=== PATIENT | male | born 1985 | race Caucasian/White ===

== ENCOUNTER 2023-07-22 14:36 | Outpatient (REF) | payer MEDICAID, SELFPAY ==
--- NOTE | ~2023-07-22 | XR_ITS ---
EXAMINATION: XR ANKLE, RIGHT XR FOOT, RIGHT CLINICAL INFORMATION: Right foot and ankle pain and swelling. Dorsal foot pain and anterior lower leg pain. COMPARISON: None available. TECHNIQUE: AP, lateral, and mortise views of the right ankle were obtained. AP, oblique, and lateral views of the right foot. FINDINGS: No acute fracture or dislocation. The ankle mortise is maintained. No joint space narrowing or marginal osteophytes. No osseous erosion. Tiny plantar and dorsal calcaneal spurs. XR/XR foot RT min 3V IMPRESSION: 1. No acute osseous abnormality. 2. Tiny plantar and dorsal calcaneal spurs.
--- NOTE | ~2023-07-22 | XR_ITS ---
EXAMINATION: XR ANKLE, RIGHT XR FOOT, RIGHT CLINICAL INFORMATION: Right foot and ankle pain and swelling. Dorsal foot pain and anterior lower leg pain. COMPARISON: None available. TECHNIQUE: AP, lateral, and mortise views of the right ankle were obtained. AP, oblique, and lateral views of the right foot. FINDINGS: No acute fracture or dislocation. The ankle mortise is maintained. No joint space narrowing or marginal osteophytes. No osseous erosion. Tiny plantar and dorsal calcaneal spurs. XR/XR ankle RT min 3V IMPRESSION: 1. No acute osseous abnormality. 2. Tiny plantar and dorsal calcaneal spurs.
== END 2023-07-22 14:37 | disposition home or self-care (01) ==
LOC: HO.HHCX 14:36
PROVIDERS: Visit Provider Internal Medicine
DX: M25.471 Effusion, right ankle (principal)
CPT/HCPCS: 36415; 73610; 73630; 84550; 85025; 85652; 86431

== ENCOUNTER 2023-07-22 14:52 | Outpatient (REF) | payer MEDICAID, SELFPAY ==
[2023-07-22 16:09] LABS: MANUAL DIFF FLAG NO
[2023-07-22 16:17] LABS: Basophils Percent Auto 0.7 % (0-2); Eosinophils Absolute Auto 0.1 X10*3/uL (0.0-0.4); Eosinophils Percent Auto 1.5 % (0-4); Hematocrit 47.5 % (42.0-52.0); Hemoglobin 15.7 g/dl (14.0-18.0); Imm Gran Abs Auto 0.01 X10*3/uL (0.00-0.03); Imm Gran Pct Auto 0.2 % (0.0-0.4); Lymphocytes Absolute Auto 1.3 X10*3/uL (1.2-4.9); Mean Corpuscular HGB Conc 33.1 g/dl (31.0-36.0); Mean Corpuscular Hemoglobin 27.3 pg (27.0-33.0); Mean Corpuscular Volume 82.6 fL (80.0-98.0); Monocytes Absolute Auto 0.5 X10*3/uL (0.1-1.2); Monocytes Percent Auto 8.7 % (2-11); Neutrophils Absolute Auto 4.1 x10*3/uL (2.0-8.3); Neutrophils Percent Auto 67.9 % (45-73); Platelet Count 229 X10*3/uL (160-400); Red Blood Count 5.75 X10*6/uL (4.60-5.80); Red Cell Distribution Width 13.1 % (11.0-16.0); White Blood Count 6.1 X10*3/uL (4.8-10.8)
[2023-07-22 16:24] LABS: Uric Acid 6.1 mg/dL (3.4-7.0)
[2023-07-22 16:32] LABS: Rheumatoid Factor < 13.0 IU/mL (<15.0)
[2023-07-22 17:00] LABS: Erythrocyte Sedimentation Rate 1 MM/HR (0-15)
== END 2023-07-22 14:53 | disposition home or self-care (01) ==
LOC: HO.HHCL 14:52
PROVIDERS: Visit Provider Internal Medicine
DX: M25.471 Effusion, right ankle (principal)
CPT/HCPCS: 36415; 84550; 85025; 85652; 86431

== ENCOUNTER 2024-08-19 18:12 | Emergency (ER) | payer MEDICAID, SELFPAY ==
--- NOTE | ~2024-08-19 | XR_ITS ---
CLINICAL HISTORY: CP 2 view chest x-ray Comparison: None Findings: The lungs are clear. Normal size heart. No acute fracture. IMPRESSION: 1. No acute findings. This document has been electronically signed by: Jose Daniel Hebert MD on 08/19/2024 20:02:35
--- NOTE | 2024-08-19 18:15 | ECG_ITS ---
Test Reason : CP Blood Pressure : */* mmHG Vent. Rate : 97 BPM Atrial Rate : 97 BPM P-R Int : 120 ms QRS Dur : 70 ms QT Int : 334 ms P-R-T Axes : 72 -20 17 degrees QTcB Int : 424 ms Normal sinus rhythm Normal ECG No previous ECGs available Referred By: Generic ED Physician Electronically Signed By: USAMA ZHOU MD
[2024-08-19 18:49] VITALS: BP 122/77; PULSE 94; RESP 18; TEMP 36.3; O2SAT 94; BMI 29.3
--- NOTE | 2024-08-19 18:55 | ED.CHESTPAIN ---
HPI - Chest Pain General Chief Complaint: Chest Pain Stated Complaint: chest pain/vomiting Time Seen by Provider: 08/20/24 00:17 Source: patient Limitations: no limitations History of Present Illness ED Provider: Vandana Kaplan PA-C HPI narrative: 39-year-old male presents with multiple complaints. Patient states he developed sharp upper anterior chest discomfort around 330 p.m., followed by generalized abdominal pain with the associated nausea vomiting and diarrhea. The chest discomfort was brief, he is currently asymptomatic. Patient has had 3-4 episodes of vomiting thus far. Denies sick contacts with same symptoms. Denies recent cough or cold symptoms, shortness of breath or fever. Denies recent travel, use of antibiotics or hospitalization. Related Data Previous Rx's ?Medication ?Instructions ?Recorded dicyclomine 20 mg tablet 20 mg PO BID PRN abdominal pain #7 08/20/24 tabs ondansetron HCl 4 mg tablet 4 mg PO Q8H PRN nausea and 08/20/24 vomiting #10 tabs Allergies Allergy/AdvReac Type Severity Reaction Status Date / Time latex [LATEX] Allergy Unknown ITCHY Verified 08/19/24 18:50 Review of Systems Review of Systems: Yes all other systems are reviewed and are negative Constitutional: Constitutional: Denies fatigue and Denies fever(s) Cardiovascular: Cardiovascular: Reports chest pain and Denies dyspnea Respiratory: Respiratory: Denies chest congestion, Denies cough and Denies dyspnea Gastrointestinal: Gastrointestinal: Reports abdominal pain, Reports diarrhea, Reports nausea and Reports vomiting Endocrine: Endocrine: Denies fatigue PMFSH Past Medical History Attestation statement: The following information was validated with the patient. Social History Social History (System 07/22/23 @ 11:03 by Leena Martino) Advance Directives: No Advance Directives Information Provided: Yes Do you have a plan to hurt others: No Plan Physical Exam Vital Signs: Vital Signs: Last Vital Signs Temp 98.0 F 08/20/24 04:21 Pulse 56 08/20/24 04:21 Resp 14 08/20/24 04:21 BP 111/69 08/20/24 04:21 Pulse Ox 98 08/20/24 04:21 O2 Del Method Room Air 08/20/24 04:21 BMI result Body Mass Index 29.3 Const: Other: Alert well-appearing Orientation/consciousness: patient oriented x3 Resp: Effort & Inspection: normal respiratory effort Cardio: Other: Normal peripheral perfusion GI: Other: Abdomen is soft, nondistended nontender no guarding Skin: Other: Warm dry no rash Neuro: General: patient oriented x3, gait normal, no focal motor deficits and CN's II-XI intact bilaterally Psych: Other: Cooperative Course Course Course Narrative: This is an RME: Additional HPI, ROS, PE not included below will be deferred to primary provider. RME assessment and note performed by: Irina Bass PA-C This is a 39-year-old male who presents emergency department for evaluation of chest pain. This started at approximately 3:30 a.m. this afternoon, also endorsing nausea, vomiting, diarrhea. Plan: Labs, viral swabs, EKG, chest x-ray Medications Administered Discontinued Medications Generic Name Dose Route Start Last Admin Trade Name Freq PRN Reason Stop Dose Admin Dicyclomine HCl 20 mg 08/20/24 01:02 08/20/24 02:52 Dicyclomine Hcl 10 Mg Capsule PO 08/20/24 01:03 20 mg ONCE ONE Administration Sodium Chloride 1,000 mls @ 999 mls/hr 08/20/24 01:15 08/20/24 02:52 Ns IV 08/20/24 02:15 999 mls/hr .Q1H1M SOLO Administration Ketorolac Tromethamine 15 mg 08/20/24 01:02 08/20/24 02:52 Ketorolac Tromethamine 15 Mg/Ml Vial IVPUSH 08/20/24 01:03 15 mg ONCE ONE Administration Ondansetron HCl 4 mg 08/20/24 01:02 08/20/24 02:52 Ondansetron Hcl 4 Mg/2 Ml Vial IVPUSH 08/20/24 01:03 4 mg ONCE ONE Administration Medical Decision Making Medical Decision Making [facility] Narrative: 39-year-old male presents with multiple complaints. Patient states he developed sharp upper anterior chest discomfort around 330 p.m., followed by generalized abdominal pain with the associated nausea vomiting and diarrhea. The chest discomfort was brief, he is currently asymptomatic. Patient has had 3-4 episodes of vomiting thus far. Denies sick contacts with same symptoms. Denies recent cough or cold symptoms, shortness of breath or fever. Denies recent travel, use of antibiotics or hospitalization. No known chronic issues History: Per patient I have considered the following differential diagnoses: ACS, viral gastroenteritis, diverticulitis, traveler's diarrhea, C diff Plan: Patient's symptoms are likely secondary to viral gastroenteritis as such illness has been prevalent within the community. Has a nonfocal abdominal exam, I considered diverticulitis, however again exam was benign he does not warrant imaging. We will provide symptomatic care. Screening labs were obtained from triage. In regard to his chest discomfort it is atypical it was transient he has no risk factors for coronary artery disease, troponin EKG and chest x-ray were obtained. The patient has no risk factors for C diff or traveler's diarrhea. Labs: Slight leukocytosis, not anemic, no electrolyte abnormality, troponin 3.3 EKG: Normal sinus rhythm, rate of 97 no ischemic changes no ectopy QTC 424 Chest x-ray:omparison: None Findings: The lungs are clear. Normal size heart. No acute fracture. IMPRESSION: 1. No acute findings. This document has been electronically signed by: Jose Daniel Hebert MD on Lab Data 08/19/24 19:25 08/19/24 19:24 Labs: Lab Results 08/19/24 08/19/24 08/20/24 Range/Units 19:24 19:25 00:44 WBC 12.4 H (4.8-10.8) X10*3/uL RBC 6.17 H (4.60-5.80) X10*6/uL Hgb 16.8 (14.0-18.0) g/dl Hct 49.6 (42.0-52.0) % MCV 80.4 (80.0-98.0) fL MCH 27.2 (27.0-33.0) pg MCHC 33.9 (31.0-36.0) g/dl RDW 13.2 (11.0-16.0) % Plt Count 235 (160-400) X10*3/uL MPV 10.0 (9.4-12.4) fL Immature Gran % (Auto) 0.2 (0.0-0.4) % Neut % (Auto) 82.8 H (45-73) % Lymph % (Auto) 7.7 L (20-40) % Burke % (Auto) 8.1 (2-11) % Eos % (Auto) 1.0 (0-4) % Baso % (Auto) 0.2 (0-2) % Lymph # (Auto) 1.0 L (1.2-4.9) X10*3/uL Burke # (Auto) 1.0 (0.1-1.2) X10*3/uL Eos # (Auto) 0.1 (0.0-0.4) X10*3/uL Baso # (Auto) 0.0 (0.0-0.2) X10*3/uL Abs Immat Gran (auto) 0.03 (0.00-0.03) X10*3/uL Absolute Neuts (auto) 10.3 H (2.0-8.3) x10*3/uL Absolute Nucleated RBC 0.000 (0.0-0.012) X10*3/uL Nucleated RBC % (auto) 0.0 (0.0-0.2) /100WBC Sodium 141 (135-145) mmol/L Potassium 4.5 (3.3-5.1) mmol/L Chloride 109 H (96-108) mmol/L Carbon Dioxide 28 (22-29) mmol/L Anion Gap 9 L (12-20) BUN 11 (9-16) mg/dL Creatinine 0.81 (0.5-1.4) mg/dL Estim Creat Clear Calc 128.8 Estimated GFR > 60 Random Glucose 98 (60-115) mg/dL Calcium 9.1 (8.4-10.2) mg/dL Magnesium 2.0 (1.6-2.6) mg/dL Total Bilirubin 1.4 H (0.0-1.0) mg/dL Direct Bilirubin 0.4 (0.0-0.5) mg/dL AST 19 (5-37) U/L ALT 36 (0-40) U/L Alkaline Phosphatase 66 (39-117) U/L Troponin I High Sens 3.3 (<3.5-35.0) ng/L Total Protein 7.9 (6.5-8.0) g/dL Albumin 4.4 (3.5-5.0) g/dL Lipase 15 (8-78) U/L Urine Color Yellow Urine Appearance Clear Urine pH 5.5 (5.0-9.0) Ur Specific [place] 1.020 (1.005-1.025) Urine Protein 30 (1+) H (Neg-Trace) mg/dL Urine Glucose (UA) Negative (Negative) mg/dL Urine Ketones Trace (Negative) mg/dL Urine Blood Negative (Negative) Urine Nitrite Negative (Negative) Ur Leukocyte Esterase Negative (Negative) Urine RBC 0-2 (0-2) /HPF Urine WBC 0-5 (0-5) /HPF Ur Squamous Epith Cells 0-2 (0-2) /HPF Urine Bacteria None Seen (None Seen) Hyaline Casts 0-2 (0-2) /LPF Influenza Type A (PCR) NEGATIVE (Negative) Influenza Type B (PCR) NEGATIVE (Negative) RSV RNA Qual (PCR) NEGATIVE (Negative) SARS-CoV-2 RNA (RT-PCR) NEGATIVE (Negative) Discharge Plan Discharge Clinical Impression: Viral gastroenteritis, Chest wall pain Patient Disposition: Home, Self-Care Instructions: Gastroenteritis (ED), Chest Wall Pain (ED) Additional Instructions: All of your screening labs including a cardiac enzymes were normal. The viral panel was negative. Your chest x-ray is clear and there were no concerning changes on your EKG. You have a virus causing your symptoms. In regard to your chest pain, it is most consistent with chest wall pain, not cardiac pain. Uses Zofran as needed for nausea. Use the dicyclomine as needed for abdominal cramping and diarrhea. You can use [id number] ibuprofen 600 mg taken every 6 hours with food, for your chest wall pain. Follow up with your primary care provider as needed. Prescriptions: New ondansetron HCl 4 mg tablet 4 mg PO Q8H PRN (Reason: nausea and vomiting) Qty: 10 0RF dicyclomine 20 mg tablet 20 mg PO BID PRN (Reason: abdominal pain) Qty: 7 0RF Interventions: ED Discharge Assessment Last Done: 08/20/24 04:21 Discharge Date/Time: 08/20/24 04:23 Print Language: Italian
[2024-08-19 19:28] LABS: MANUAL DIFF FLAG NO
[2024-08-19 19:33] LABS: Basophils Percent Auto 0.2 % (0-2); Eosinophils Absolute Auto 0.1 X10*3/uL (0.0-0.4); Hematocrit 49.6 % (42.0-52.0); Hemoglobin 16.8 g/dl (14.0-18.0); Imm Gran Abs Auto 0.03 X10*3/uL (0.00-0.03); Imm Gran Pct Auto 0.2 % (0.0-0.4); Lymphocytes Percent Auto 7.7 % (20-40); Mean Corpuscular HGB Conc 33.9 g/dl (31.0-36.0); Mean Corpuscular Hemoglobin 27.2 pg (27.0-33.0); Mean Corpuscular Volume 80.4 fL (80.0-98.0); Monocytes Percent Auto 8.1 % (2-11); Neutrophils Absolute Auto 10.3 x10*3/uL (2.0-8.3); Neutrophils Percent Auto 82.8 % (45-73); Platelet Count 235 X10*3/uL (160-400); Red Blood Count 6.17 X10*6/uL (4.60-5.80); Red Cell Distribution Width 13.2 % (11.0-16.0); White Blood Count 12.4 X10*3/uL (4.8-10.8)
[2024-08-19 20:04] LABS: Alanine Aminotransferase 36 U/L (0-40); Albumin Level 4.4 g/dL (3.5-5.0); Alkaline Phosphatase 66 U/L (39-117); Anion Gap 9 (12-20); Aspartate Amino Transferase 19 U/L (5-37); Bilirubin Direct 0.4 mg/dL (0.0-0.5); Bilirubin Total 1.4 mg/dL (0.0-1.0); Blood Urea Nitrogen 11 mg/dL (9-16); Calcium 9.1 mg/dL (8.4-10.2); Carbon Dioxide 28 mmol/L (22-29); Chloride 109 mmol/L (96-108); Creatinine Clr Calc Pharmacy 128.8; Estimated Glomerular Filt Rate > 60; Glucose Random 98 mg/dL (60-115); Lipase 15 U/L (8-78); Potassium 4.5 mmol/L (3.3-5.1); Sodium 141 mmol/L (135-145); Total Protein 7.9 g/dL (6.5-8.0)
[2024-08-19 20:09] LABS: Influenza A PCR NEGATIVE (Negative); Influenza B PCR NEGATIVE (Negative); Resp Syncy Virus RNA Qual PCR NEGATIVE (Negative); SARS COV2 PCR INHOUSE NEGATIVE (Negative)
[2024-08-19 20:10] LABS: Troponin-I High Sensitivity 3.3 ng/L (<3.5-35.0)
[2024-08-19 22:28] VITALS: BP 118/65; PULSE 69; RESP 18; TEMP 36.6; O2SAT 99
[2024-08-20 00:13] VITALS: BP 127/74; PULSE 66; RESP 16; TEMP 36.6; O2SAT 99
[2024-08-20 00:51] LABS: Appearance Urine Clear; Color Urine Yellow; Glucose Urine UA Negative (Negative); Leukocyte Esterase Urine Negative (Negative); Nitrite Urine Negative (Negative); PH 5.5 (5.0-9.0); UMIC TRIGGER UACC YES; Urine Blood Negative (Negative); Urine Ketones Trace mg/dL (Negative); Urine Protein 30 (1+) mg/dL (Neg-Trace)
[2024-08-20 00:59] LABS: Bacteria Urine None Seen (None Seen); Hyaline Casts Urine 0-2 /LPF (0-2); RBC Urine 0-2 /HPF (0-2); Squamous Epithelial Cell Urine 0-2 /HPF (0-2); WBC Urine 0-5 /HPF (0-5)
[2024-08-20 02:22] VITALS: BP 111/69; PULSE 56; RESP 14; TEMP 36.7; O2SAT 98
[2024-08-20] MEDS: ondansetron HCL 4 MG/2 ML VIAL IVPUSH (02:52)
[2024-08-20] MEDS: Ketorolac Tromethamine 15 MG/ML VIAL IVPUSH (02:52)
[2024-08-20] MEDS: Dicyclomine HCl 10 MG CAPSULE 20 MG PO (02:52)
[2024-08-20] MEDS: 0.9 % Sodium Chloride 1,000 ML 999 ML IV (02:52)
[2024-08-20 04:21] VITALS: BP 111/69; PULSE 56; RESP 14; TEMP 36.7; O2SAT 98
== END 2024-08-20 04:23 | disposition home or self-care (01) ==
PROVIDERS: Physician Assistant Medical; Emergency Provider Emergency Medicine
DX: K52.9 Noninfective gastroenteritis and colitis, unspecified (principal); R07.89 Other chest pain; Z03.818 Encounter for observation for suspected exposure to other biological agents ruled out; R11.2 Nausea with vomiting, unspecified
CPT/HCPCS: 0241U; 71046; 80048; 80076; 81001; 83690; 83735; 84484; 85025; 93005; 96374; 96375; 99284; J1885; J2405

== ENCOUNTER → 2024-08-19 18:15 | Outpatient (BNV) | payer MEDICAID, SELFPAY | PROVIDERS: Emergency Provider Emergency Medicine; Visit Provider Internal Medicine Cardiovascular Disease | DX: R07.9 Chest pain, unspecified (principal) | CPT/HCPCS: 93010 ==

== ENCOUNTER → 2024-08-19 19:17 | Outpatient (BNV) | payer MEDICAID, SELFPAY | PROVIDERS: Visit Provider Radiology Diagnostic Radiology | DX: R07.9 Chest pain, unspecified (principal) | CPT/HCPCS: 71046 ==

== ENCOUNTER 2024-09-21 08:08 | Outpatient (REF) | payer MEDICAID, SELFPAY ==
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
--- OUTSIDE RECORDS SUMMARY | 2024-09-21 08:12 | XMS_ITS | Encounter Summary ---
Author Organization [employer] Address [address] [facility] [address] [place] [address] Care Team Providers Care Balance Assembler Name Role Phone Anel Velasco SOLE ROUNDING MACHINE OPERATOR Primary Care Provider [phone] Encounter Details Date Type Department Care Team (Latest Contact Info) Description 09/17/2024 Travel Social History Tobacco Use Types Packs/Day Years Used Date Smoking Tobacco: Never Smokeless Tobacco: Never Alcohol Use Standard Drinks/Week Comments Yes 0 (1 standard drink = 0.6 oz pur e alcohol) Socially Depression Answer Date Recorded Patient Health Questionnaire-9 Score 0 09/17/2024 Patient Health Questionnaire-9 Score 0 09/17/2024 Last PHQ-9: Questionnaire Data Not on file 0 09/17/2024 Housing Stability Answer Date Recorded What is your housing situation today? I have benjie cassie 06/03/[address] you li ve. Do you have problems with any of the following? None of the above 06/03/2023 Food Insecurity Answer Date Recorded Within the past 12 months, y ou worried that your food would run out before you got money to buy more: Never True 06/03/2023 Within the past 12 months,th e food you bought just didn't last and you didn't have enough money to get more: Never True Transportation Answer Date Recorded In the past 12 months, has l ack of transportation kept you from medical appts, meetings, work or from getting things needed for daily living? No 06/03/2023 Utilities Answer Date Recorded In the past 12 months, has t he electric, gas, oil or water company threatened to shut off services in your home? No 06/03/2023 Depression Answer Date Recorded Patient Health Questionnaire-2 Score 0 09/17/2024 Sex and Gender Information Value Date Recorded Sex Assigned at Male 06/03/2022 10:37 AM EDT Legal Sex Male 10:37 AM EDT Gender Identity Male 06/03/2022 10:37 AM EDT Sexual Orientation Straight 06/03/2022 10 :37 AM EDT documented as of this encounter Plan of Treatment Not on file documented as of this encounter Visit Diagnoses Not on filedocumented in this encounter Additional Health Concerns Assessment Noted Time PHQ-9 Depression Total Score: 0 09/17/19 25 9:33 AM EST documented as of this encounter Care Teams Balance Assembler Relationship Specialty Start Date End Date Anel Velasco FNP [address] [place] [address] PCP - General Family Medicine 10/03/22 documented as of this encounter
--- OUTSIDE RECORDS SUMMARY | 2024-09-21 08:12 | XMS_ITS | Encounter Summary ---
Author Organization [employer] Address [address] [facility] [address] [place] [address] Care Team Providers Care City Dispatch Supervisor Name Role Phone Anel Velasco DIRECTOR PHARMACEUTICAL Primary Care Provider [phone] Reason for Visit * Reason Onset Date Comments Chart Prep 09/16/2024 Encounter Details Date Type Department Care Team (Late st Contact Info) Description 09/16/2024 Telephone [facility] [address] [place] [address] Jing Talley MA Chart Prep Social History Tobacco Use Types Packs/Day Years [...] your housing situation today? I have benjie matthews 06/03/[address] you li [...] AM EDT documented as of this encounter Miscellaneous Notes * Telephone Encounter - Jing Duenas MA - 09/16/2024 9:47 AM EST Chart Prep Labs: done Images: done Vaccines due: yes Referrals: pending appt Screenings: STI screening, Lipid Panel, Hep C Overdue care gaps: Sbirt, SDOH, PHQ-9, PISQ documented in this encounter Plan of Treatment Not on file documented as of this encounter Visit Diagnoses Not on filedocumented in this encounter Care Teams City Dispatch Supervisor Relationship Specialty Start Date End Date Anel Velasco FNP [address] [place] [address] PCP - General Family Medicine 10/03/22 documented as of this encounter
--- OUTSIDE RECORDS SUMMARY | 2024-09-21 08:12 | XMS_ITS | Encounter Summary ---
Author Organization [facility] Address [address] [facility] [address] [place] [address] Care Team Providers Care Surveillance Investigator Name Role Phone Anel Velasco Primary Care Provider [phone] Reason for Visit * Reason Onset Date Comments Appointment Request 10/10/2022 Encounter Details Date Type Department Care Team (Late st Contact Info) Description 10/10/2022 Telephone [facility] [address] [place] [address] Anel Velasco FNP [address] [place], [place] [phone] Appointment Request Social History Tobacco Use Types Packs/Day Years Used Date Smoking Tobacco: Never Smokeless Tobacco: Never Housing Stability Answer Date Recorded What is your housing situation today? I have benjiejuanjo matthews 06/03/[address] you [...] off services in your home? No 06/03/2023 Sex and Gender Information Value Date Recorded Sex Assigned at Male 06/03/2022 10:37 AM EDT Legal Sex Male 10:37 AM EDT Gender Identity Male 06/03/2022 10:37 AM EDT Sexual Orientation Straight 06/03/2022 10 :37 AM EDT COVID-19 Exposure Response Date Recorded In the last 10 days, have yo u been in contact with someone who was confirmed or suspected to have Coronavirus/COVID-19? No / Unsure 10/28/2022 1:08 PM EDT documented as of this encounter Miscellaneous Notes * Telephone Encounter - Halima Marquez - 10/10/2022 12:50 PM EST Tc from pt requesting to schedule a appt with PCP per HIM requesting to sign FMLA forms. Please contact at [phone] [place] documented in this encounter Plan of Treatment Not on file documented as of this encounter Visit Diagnoses Not on filedocumented in this encounter Care Teams Surveillance Investigator Relationship Specialty Start Date End Date Anel Velasco FNP [address] [place] [address] PCP - General Family Medicine 10/03/22 documented as of this encounter
--- OUTSIDE RECORDS SUMMARY | 2024-09-21 08:12 | XMS_ITS | Encounter Summary ---
Author Organization [employer] Address [address] [facility] [address] [place] [address] Care Team Providers Care Neon Electrician Name Role Phone Anel Velasco Primary Care Provider [phone] Reason for Visit * Reason Comments Pre-visit Planning SDOH unable to reach LVM Encounter Details Date Type Department Care Team ([facility] st Contact Info) Description 09/10/2024 Patient Outreach [facility] [address] [place], [place] [phone] Anel Velasco FNP [address] [place] [address] Pre-visit Planning (SDOH unable to reach LVM) Social History Tobacco Use Types Packs/Day Years Used Date Smoking Tobacco: Never Smokeless Tobacco: Never Alcohol Use Standard Drinks/Week Comments Yes 0 (1 standard drink = 0.6 oz pur e alcohol) Socially Housing Stability Answer Date Recorded What is [...] on filedocumented in this encounter Care Teams Neon Electrician Relationship Specialty Start Date End Date Anel Velasco FNP [address] [place] [address] PCP - General Family Medicine 10/03/22 documented as of this encounter
--- OUTSIDE RECORDS SUMMARY | 2024-09-21 08:12 | XMS_ITS | Clinical Summary ---
Author Organization [employer] Address [address] [facility] [address] [place] [address] Care Team Providers Care Crocodile Farmer Name Role Phone Anel Velasco [facility] Primary Care Provider [phone] Allergies Active Allergy Reactions Criticality Noted Date Comments Latex 10/04/2022 Medications carbamide peroxide (Debrox) 6.5 % otic solutionIndicat ions:Impacted cerumen, unspecified laterality Administer 5-10 drops into affected ear(s) 2 times daily for 4 days. Schedule nurse ear cleaning visit if ear wax not removed with drops. 30 mL 5 09/24/19 25 Active lidocaine (Lidoderm) 5 % patch APPLY 1-3 PATCHES TOPICALLY FOR 12 HOURS IN A 24 HOUR PERIOD 3 09/17/19 25 Discontin ued(Thera py completed ) acetaminophen (Tylenol Extra Strength) 500 MG tablet Take 1-2 tablets by mouth every 8 hours as needed for back pain 100 tablet 2 3 09/17/19 25 Discontin ued(Thera py completed ) tiZANidine (Zanaflex) 2 MG tabletIndicatio ns:Spasm of muscle of lower back Take 1-2 tablets (2-4 mg) by mouth every 8 (eight) hours if needed for muscle spasms. 30 tablet 1 3 09/17/19 25 Discontin ued(Thera py completed ) Diclofenac Sodium 1 % gel Apply thin layer by topical route in the morning and at bedtime as needed for pain. 100 g 1 4 09/17/19 25 Discontin ued(Thera py completed ) Active Problems Problem Noted Date Diagnosed Date Healthcare maintenance 09/20/2024 Overview (09/20/2024): Last Physical: 09/17/24 OPH: referral to [facility] Eye Care 09/17/24 Dental: established Resolved Problems Problem Noted Date Diagnosed Date Resolved Date Kidney stone 10/31/2020 09/20/2024 Encounters Date Type Department Care Team Description 09/17/2024 9:30 AM EST Office Visit [facility] [address] [place] [address] Anel Velasco FNP Encounter for routine history and physical examination of adult (Primary Dx); Healthcare maintenance; Visit for eye and vision exam; Lower volume of ejaculated semen; Impacted cerumen, unspecified laterality; Dietary counseling; Exercise counseling 09/17/2024 Travel 09/16/2024 Telephone [facility] [address] [place] [address] Jing Talley MA Chart Prep 09/10/2024 Patient Outreach [facility] [address] [place] [address] Anel Velasco FNP Pre-visit Planning ([facility] unable to reach [facility]) 08/09/2024 Telephone [facility] [address] [place] [address] Anel Velasco FNP ER Follow-up from Last 3 Months Immunizations Name Administration Dates Next Due Influenza injectable quadrivalent preservative f ree 07/02/2017 Tdap 01/22/2021,03/05/2019 Varicella 03/11/2019 Family History Medical History Relation Name Comments Diabetes Maternal Grandmother thyroid disorder Maternal Grandmother Relation Name Status Comments Maternal Grandmother Social History Tobacco Use Types Packs/Day Years Used Date Smoking Tobacco: Never Smokeless Tobacco: Never Tobacco Cessation:Counseling Given: Not Answered Alcohol Use Standard Drinks/Week Comments Yes 0 (1 standard drink = 0.6 oz pur e alcohol) Socially Alcohol Answer Date Recorded Q1: How often do you have a drink containing alc ohol? 2 09/20/2024 Q2: How many drinks containi ng alcohol do you have on a typical day when you are drinking? 2 09/20/2024 Q3: How often do you have six or more drinks on one occasion? 1 09/20/2024 Depression Answer Date Recorded Patient Health Questionnaire-9 [...] Orientation Straight 06/03/2022 10 :37 AM EDT Last Filed Vital Signs Vital Sign Reading Time Taken Comments Blood Pressure 121/75 09/17/2024 9:23 AM EST Pulse 55 09/17/2024 9:23 AM EST Temperature 36.1 ??C (96.9 ??F) 09/17/2024 9:23 AM ES T Respiratory Rate 16 09/17/2024 9:23 AM EST Oxygen Saturation 99% 09/17/2024 9:23 AM EST Inhaled Oxygen Concentration - - Weight 85.3 kg (188 lb) 09/17/2024 9:23 AM EST Height 170.2 cm (5' 7 ) 09/17/2024 9:23 AM EST Body Mass Index 29.44 09/17/2024 9:23 AM EST Plan of Treatment Health Maintenance Due Date Last Done Comments HIV Screening 1986 Lipid Panel 1986 Hepatitis C Screening 02/08/2004 Hepatitis B Vaccines (1 of 3 - 19+ 3-dose series) 2005 SDOH Screening 10/22/2023 10/21/2022 Influenza Vaccine (#1) 2025 07/02/2017 Postp oned from 04/04/2024 (Patient Refused) Depression Screening 09/17/2025 09/17/2024, 09/17/2024 Alcohol/Substance Use Screening 09/20/2025 09/20/2024 COVID-19 Vaccine (4 - 2023-2 5 season) 2025 08/17/2021, 12/06/2020, 11/08/2020 Postponed from 04/04/2024 (Patient Refused) Family Planning (PISQ) 09/20/2025 09/20/2024 Tobacco Screening 09/20/2025 09/20/2024 DTaP/Tdap/Td Vaccines (3 - T d or Tdap) 01/22/2031 01/22/2021, 03/05/2019 Zoster Vaccines (1 of 2) 02/08/2036 RSV Patients and Patients Aged 60 years or older (1 - 1-dose 75+ series) 2061 HIB Vaccines Aged Out No longer eligi [...] patient's age to complete this topic Meningococcal Vaccine Aged Out No tessa krissy eligible based on patient's age to complete this topic Pneumococcal Vaccine: Pediatrics (0 to 5 Years) and At-Risk Patients (6 to 49) Years) Aged Out No longer eligible b ased on patient's age to complete this topic RSV under 20 months Aged Out No longe r eligible based on patient's age to complete this topic Rotavirus Vaccines Aged Out No longer eligible based on patient's age to complete this topic Insurance Care Teams Crocodile Farmer Relationship Specialty Start Date End Date Anel Velasco FNP [address] [place] [id number] PCP - General Family Medicine 10/03/22
--- OUTSIDE RECORDS SUMMARY | 2024-09-21 08:12 | XMS_ITS | Encounter Summary ---
Author Organization [employer] Address [address] [facility] [address] [place] [address] Care Team Providers Care Fund Accounting Manager Name Role Phone Anel Velasco Primary Care Provider [phone] Reason for Visit * Reason Onset Date Comments Referral 11/01/2022 Encounter Details Date Type Department Care Team (Late st Contact Info) Description 11/01/2022 Telephone [facility] [address] [place] [address] Anel Velasco FNP [address] [place], [place] [id number] Referral Social History Tobacco Use Types Packs/Day Years [...] encounter Miscellaneous Notes * Telephone Encounter - Haylie Rossi LPN - 11/01/2022 2:52 PM EDT Patient came in went over FMLA paperwork - as per patient request. Patient reports that he is stillexperiencing pain, has injection scheduled with Miryam Ruiz MD. He reports Friday worked a whole day 10 hours, only 4 hours and now he has been out of work. Completed FMLA, ROTARY CUTTER OPERATOR signed and patient given original paperwork to take to his employer [employer]. Patient reports this was a work related injury during discussion. He will follow up with work on incident. ROTARY CUTTER OPERATOR was notified on visit and conversation. * Telephone Encounter - Haylie Rossi LPN - 11/01/2022 1:31 PM EDT F/U w/patient regarding clarification on FMLA and dates. Patient reported having some pain, went towork [employer] this week, now having to leave work early. Injection not scheduled until 11/13/22, and physical therapy told him unable to make appt till December 2022? * Telephone Encounter - Halima Marquez - 11/01/2022 10:38 AM EDT Tc from pt requesting for PCP to please contact [facility], where pt was referred to for physical therapy, States they scheduled pt for December however was advised if PCPcontacts with a urgent request pt will be able to be seen sooner. Please contact at [phone] documented in this encounter Plan of Treatment Not on file documented as of this encounter Visit Diagnoses Not on filedocumented in this encounter Care Teams Fund Accounting Manager Relationship Specialty Start Date End Date Anel Velasco FNP [address] [place] [id number] PCP - General Family Medicine 10/03/22 documented as of this encounter
--- OUTSIDE RECORDS SUMMARY | 2024-09-21 08:12 | XMS_ITS | Encounter Summary ---
Author Organization [employer] Address [address] [facility] [address] [place] [address] Care Team Providers Care Hat Brim And Crown Laminating Operator Name Role Phone Anel Velasco Primary Care Provider [phone] Reason for Referral * Consultation (Routine) - Authorized Specialty Diagnoses / Procedures Referred By Marily bautista Referred To Contact Optometry Diagnoses Visit for eye and vision exam Anel Velasco FNP [address] [place] [address] Phone: tel: fax: [facility] [address] [place] [address] Phone: tel: fax: Referral ID Status Reason Start Date Expiration Date Visits Requested Visits Authorized [id number] Authorized Consult and Treat 09/17/2024 09/17/2025 1 1 Reason for Visit * Reason Comments Annual Exam Encounter Details Date Type Department Care Team ([facility] Contact Info) Description 09/17/2024 9:30 AM EST Office Visit [facility] [address] [place] [address] Anel Velasco FNP [address] [place] [address] Encounter for routine history and physical examination of adult (Primary Dx); Healthcare maintenance; Visit for eye and vision exam; Lower volume of ejaculated semen; Impacted cerumen, unspecified laterality; Dietary counseling; Exercise counseling Social History Tobacco Use Types Packs/Day Years [...] AM EDT documented as of this encounter Last Filed Vital Signs Vital Sign Reading [...] Mass Index 29.44 09/17/2024 9:23 AM EST documented in this encounter Progress Notes * Anel Velasco, RESTAURANT INSPECTOR - 09/17/2024 9:30 AM EST Subjective: Christiano Cordon Mohit Fountain is a 39 y.o. male who presents to the office for a physical exam. Current concerns: Ejaculate abnormality: Sexually active with female partner. No difficulties with initiating or maintaining erection. Libido baseline. He expresses concern about noting possible less ejaculate than before, and is requesting to check testosterone level. Denies any change in energy level, not currently taking any medications or supplements. PMH: no active medical conditions PSH: none reported Family History Problem Relation Diabetes Maternal Grandmother Other (thyroid disorder) Maternal Grandmother Social History Living situation: currently living with mother, plan to move in with girlfriend. Two children - adolescent son and daughter Employment/Education: in between jobs. Previously employed at [employer] but difficult for back pain. Diet/exercise: gym 4-5 days per week, eating healthy Substance use: -alcohol: socially (infrequent) -tobacco: none -opioids: none Sexual activity: female partner Contraception: female partner unable to become Mental health: good overall, denies SI/HI/thoughts of self harm Allergies Allergen Reactions Latex Review of Systems Constitutional: Negative for chills, fatigue and fever. HENT: Negative for congestion, mouth sores, sinus pressure and sore throat. Respiratory: Negative for cough, shortness of breath and wheezing. Cardiovascular: Negative for chest pain and palpitations. Gastrointestinal: Negative for constipation, diarrhea, nausea and vomiting. Genitourinary: Negative for decreased urine volume, dysuria, penile discharge, penile pain, penile swelling, scrotal swelling and testicular pain. Musculoskeletal: Negative for arthralgias, back pain and gait problem. Skin: Negative for rash. Neurological: Negative for dizziness, seizures and weakness. Psychiatric/Behavioral: Negative for suicidal ideas. The patient is not nervous/anxious. Visit Vitals BP 121/75 (BP Location: Right arm, Patient Position: Sitting, BP Cuff Size: Large adult) Pulse 55 Temp 96.9 ??F (36.1 ??C) (Oral) Resp 16 Ht 5' 7 (1.702 m) Wt 188 lb (85.3 kg) SpO2 99% BMI 29.44 kg/m?? Smoking Status Never BSA 2.01 m?? Physical Exam Vitals reviewed. Constitutional: General: He is not in acute distress. Appearance: Normal appearance. HENT: Head: Normocephalic and atraumatic. Right Ear: External ear normal. There is impacted cerumen. Left Ear: Tympanic membrane, ear canal and external ear normal. Nose: Nose normal. No congestion. Mouth/Throat: Mouth: Mucous membranes are moist. Pharynx: No oropharyngeal exudate or posterior oropharyngeal erythema. Eyes: General: Right eye: No discharge. Left eye: No discharge. Pupils: Pupils are equal, round, and reactive to light. Cardiovascular: Rate and Rhythm: Normal rate and regular rhythm. Pulmonary: Effort: Pulmonary effort is normal. No respiratory distress. Breath sounds: Normal breath sounds. No stridor. Abdominal: General: Bowel sounds are normal. There is no distension. Palpations: Abdomen is soft. Musculoskeletal: General: Normal range of motion. Cervical back: No tenderness. Skin: General: Skin is warm. Neurological: Mental Status: He is alert and oriented to person, place, and time. Psychiatric: Mood and Affect: Mood normal. Behavior: Behavior normal. Problem List Items Addressed This Visit Other Healthcare maintenance Overview Last Physical: 09/17/24 OPH: referral to [facility] 09/17/24 Dental: established Relevant Orders Lipid Panel, Standard Hemoglobin A1c TSH with Reflex to Free T4 Comprehensive Metabolic Panel CBC auto differential Chlamydia/N. Gonorrhoeae RNA, TMA, Urogenitial Hepatitis C Viral RNA, Quantitative, Real-Time PCR RPR (Monitor) with Reflex to Titer HIV-1/2 Antigen and Antibodies, Fourth Generation, with Reflexes Testosterone, Total, males (Adult), IA Hepatitis B Core Antibody, Total Hepatitis B Surface Antibody, Qualitative Hepatitis B surface antigen, EIA Other Visit Diagnoses Encounter for routine history and physical examination of adult - Primary -Cardiopulmonary exam WNL -Encouraged healthy lifestyle habits including routine physical exercise and diet rich in fruits and vegetables Visit for eye and vision exam - reports overdue for vision eval, referral placed Relevant Orders Referral to [facility] Lower volume of ejaculated semen - Reports mild decrease of ejaculated semen, no other concerns regarding sexual function - Plan: Check total testosterone (fasting, between 8-10am) - If symptoms persist or worsen, follow up for consideration of Urology referral Impacted cerumen, unspecified laterality Relevant Medications carbamide peroxide (Debrox) 6.5 % otic solution Dietary counseling Exercise counseling Follow up: 1 year for PE, sooner as needed Current Outpatient Medications Medication Sig Dispense Refill carbamide peroxide (Debrox) 6.5 % otic solution Administer 5-10 drops into affected ear(s) 2 times daily for 4 days. Schedule nurse ear cleaning visit if ear wax not removed with drops. 30 mL 0 No current facility-administered medications for this visit. Immunization History Administered Date(s) Administered Influenza injectable quadrivalent preservative free 07/02/2017 Moderna Covid-19 Vaccine 12+ 11/08/2020, 12/06/2020, 08/17/2021 Tdap 03/05/2019, 01/22/2021 Varicella 03/11/2019 documented in this encounter Plan of Treatment Scheduled Orders Name Type Priority Associated Diagnoses Orde r Schedule Lipid Panel, Standard Lab Routine Healthcare maintenance Expected: 09/17/2024 (Approximate), Expires: 09/17/2025 Hemoglobin A1c Lab Routine Healthcare maintenance Expected: 09/17/2024 (Approximate), Expires: 09/17/2025 TSH with Reflex to Free T4 Lab Routine Healthcare maintenance Expected: 09/17/2024 (Approximate), Expires: 09/17/2025 Comprehensive Metabolic Panel Lab Routine Healthcare maintenance Expected: 09/17/2024 (Approximate), Expires: 09/17/2025 CBC auto differential Lab Routine Healthcare maintenance Expected: 09/17/2024, Expires: 09/17/2025 Chlamydia/N. Gonorrhoeae RNA, TMA, Urogenitial Microbiology Routine Healthcare maintenance Expected: 09/17/2024, Expires: 09/17/2025 Hepatitis C Viral RNA, Quantitative, Real-Time PCR Lab Routine Healthcare maintenance Expected: 09/17/2024 (Approximate), Expires: 09/17/2025 RPR (Monitor) with Reflex to??Titer Lab Routine Healthcare maintenance Expected: 09/17/2024 (Approximate), Expires: 09/17/2025 HIV-1/2 Antigen and Antibodies, Fourth Generation, with Reflexes Lab Routine Healthcare maintenance Expected: 09/17/2024 (Approximate), Expires: 09/17/2025 Testosterone, Total, males (Adult), IA Lab Routine Healthcare maintenance Expected: 09/17/2024, Expires: 09/17/2025 Hepatitis B Core Antibody, Total Lab Routine Healthcare maintenance Expected: 09/17/2024 (Approximate), Expires: 09/17/2025 Hepatitis B Surface Antibody, Qualitative Lab Routine Healthcare maintenance Expected: 09/17/2024 (Approximate), Expires: 09/17/2025 Hepatitis B surface antigen, EIA Lab Routine Healthcare maintenance Expected: 09/17/2024 (Approximate), Expires: 09/17/2025 Scheduled Referrals Name Type Priority Associated Diagnoses Orde r Schedule Referral to [facility] Care Outpatient Referral Routine Visit for eye and vision exam Expected: 09/17/2024 (Approximate), Expires: 09/17/2025 documented as of this encounter Visit Diagnoses Diagnosis Encounter for routine history and physical examination of adult- Primary Healthcare maintenance Visit for eye and vision exam Lower volume of ejaculated semen Impacted cerumen, unspecified laterality Dietary counseling Dietary surveillance and counseling Exercise counseling documented in this encounter Additional Health Concerns Assessment Noted Time PHQ-9 Depression Total Score: 0 09/17/19 25 9:33 AM EST documented as of this encounter Care Teams Hat Brim And Crown Laminating Operator Relationship Specialty Start Date End Date Anel Velasco FNP [address] [place] [id number] PCP - General Family Medicine 10/03/22 documented as of this encounter
[2024-09-21 11:06] LABS: MANUAL DIFF FLAG NO
[2024-09-21 11:15] LABS: Basophils Percent Auto 0.5 % (0-2); Eosinophils Absolute Auto 0.2 X10*3/uL (0.0-0.4); Eosinophils Percent Auto 3.5 % (0-4); Hematocrit 48.2 % (42.0-52.0); Hemoglobin 16.2 g/dl (14.0-18.0); Imm Gran Abs Auto 0.01 X10*3/uL (0.00-0.03); Imm Gran Pct Auto 0.2 % (0.0-0.4); Lymphocytes Percent Auto 22.6 % (20-40); Mean Corpuscular HGB Conc 33.6 g/dl (31.0-36.0); Mean Corpuscular Hemoglobin 27.3 pg (27.0-33.0); Mean Corpuscular Volume 81.1 fL (80.0-98.0); Mean Platelet Volume 11.2 fL (9.4-12.4); Monocytes Absolute Auto 0.3 X10*3/uL (0.1-1.2); Monocytes Percent Auto 7.3 % (2-11); Neutrophils Absolute Auto 2.8 x10*3/uL (2.0-8.3); Neutrophils Percent Auto 65.9 % (45-73); Platelet Count 226 X10*3/uL (160-400); Red Blood Count 5.94 X10*6/uL (4.60-5.80); Red Cell Distribution Width 13.6 % (11.0-16.0); White Blood Count 4.3 X10*3/uL (4.8-10.8)
[2024-09-21 11:49] LABS: Estimated Average Glucose 105 mg/dL; Hemoglobin A1C 142.2412 umol/L; Hemoglobin A1c % 5.3 % (<6.0); Total Hemoglobin (HGBA1C) 4188.6307 umol/L
[2024-09-21 12:18] LABS: Alanine Aminotransferase 42 U/L (0-40); Albumin Level 4.1 g/dL (3.5-5.0); Alkaline Phosphatase 59 U/L (39-117); Anion Gap 11 (12-20); Aspartate Amino Transferase 20 U/L (5-37); Bilirubin Total 1.4 mg/dL (0.0-1.0); Blood Urea Nitrogen 17 mg/dL (9-16); Calcium 9.2 mg/dL (8.4-10.2); Carbon Dioxide 26 mmol/L (22-29); Chloride 111 mmol/L (96-108); Cholesterol 171 mg/dL (<200); Estimated Glomerular Filt Rate > 60; Glucose Random 89 mg/dL (60-115); HDL Cholesterol 45 mg/dL (>40); LDL Cholesterol Calculated 112 mg/dL (<100); Potassium 4.3 mmol/L (3.3-5.1); Sodium 144 mmol/L (135-145); TSH reflex Free T4 1.43 uIU/mL (0.32-4.0); Total Protein 7.1 g/dL (6.5-8.0); Triglycerides 73 mg/dL (<150)
[2024-09-21 13:12] LABS: CT PCR NOT DETECTED (Not Detect.); NG PCR NOT DETECTED (Not Detect.)
[2024-09-22 08:16] LABS: HBsAGNum1 0.29 S/CO (0.00-0.99); HIV AB/AG Nonreactive (Nonreactive); HIV Num 1 0.06 S/CO (0.00-0.99); Hepatitis B Core Antibody Nonreactive (Nonreactive); Hepatitis B Surface Antigen Negative (Negative); ~Hepatitis B Surface Antibody REACTIVE (Nonreactive)
[2024-09-22 13:08] LABS: HCV Log PCR <1.18 NOT DETECTED Log IU/mL (NOT DETECTED); HepC Viral Load <15 NOT DETECTED IU/mL (NOT DETECTED)
[2024-09-23 09:34] LABS: RPR Rapid Plasma Reagin NON-REACTIVE (NON-REACTIVE)
[2024-09-26 13:09] LABS: Testosterone, Total 504 ng/dL (250-1100)
== END 2024-09-21 08:09 | disposition home or self-care (01) ==
LOC: HO.HHCL 08:08
PROVIDERS: Visit Provider Registered Nurse
DX: Z00.00 Encounter for general adult medical examination without abnormal findings (principal)
CPT/HCPCS: 80053; 80061; 83036; 84403; 84443; 85025; 86592; 86704; 86706; 87340; 87389; 87491; 87522; 87591